=== PATIENT | male | born 1965 | race Caucasian/White ===

== ENCOUNTER → 2025-08-26 10:01 | Outpatient (CLI) | payer BC, SELFPAY ==
[2025-08-26 11:02] LABS: Influenza A - CEPHEID Flu A NEGATIVE (NEGATIVE); Influenza B - CEPHEID Flu B NEGATIVE (NEGATIVE)
[2025-08-26 11:05] LABS: COVID-19 CEPHEID 4-PLEX PCR POSITIVE (Negative)
== END ==
PROVIDERS: PCP Family Medicine; Visit Provider Physician Assistant Medical
DX: R05.1 Acute cough (principal)
CPT/HCPCS: 87637